=== PATIENT | female | born 1955 | race Two or more races ===

== ENCOUNTER 2019-05-27 00:57 | Emergency (ER) | payer MEDICAID, OTHER ==
[~2019-05-27] VITALS: Ht 162.6 cm; Wt 113.4 kg
[2019-05-27 01:19] LABS: Basophils # (auto) 0.1 10 ^3/uL (0-0.2); Basophils % (auto) 1.2 % (0.0-2.0); Eosinophils # (auto) 0.4 10 ^3/uL (0-0.8); Eosinophils % (auto) 4.1 % (0.0-7.0); Hematocrit 42.3 % (36.0-46.0); Hemoglobin 14.5 g/dL (12.2-16.2); Lymphocytes # (auto) 3.2 10 ^3/uL (0.4-5.4); Lymphocytes % (auto) 34.1 % (10.0-50.0); Mean Corpuscular Hemoglobin 33.1 pg (28.0-32.0); Mean Corpuscular Hgb Conc. 34.2 g/dL (32.0-36.0); Mean Corpuscular Volume 96.9 fL (80.0-100.0); Monocytes # (auto) 0.6 10 ^3/uL (0-1.3); Monocytes % (auto) 6.8 % (0.0-12.0); Neutrophils % (auto) 53.8 % (37.0-80.0); Nucleated Red Blood Cells % 0.1 %; Platelet Count (auto) 287 10^3/uL (140-450); Red Blood Cells 4.37 10^6/uL (4.0-5.20); Red Cell Distribution Width 13.5 % (11.8-14.3); White Blood Cell 9.3 10^3/uL (4.4-10.8)
[2019-05-27] MEDS ORDERED: IPRATROPIUM BROM 0.5 MG/2.5ML INH SOL NEB ONE (01:30)
[2019-05-27] MEDS ORDERED: ALBUTEROL SULF 2.5 MG/0.5ML(0.5%) NEB SOLN NEB ONE (01:30)
[2019-05-27 01:40] LABS: Alanine Aminotransferase 40 U/L (13-56); Anion Gap 12 (5-15); Aspartate Aminotransferase 23 U/L (15-37); BUN/Creatinine Ratio 12.9; Blood Urea Nitrogen 12 mg/dL (7-18); Calcium 8.2 mg/dL (8.5-10.1); Carbon Dioxide 18 mmol/L (21-32); Chloride 108 mmol/L (98-107); GFR African American 79 mL/min; GFR Non-African American 65 mL/min; Glucose 154 mg/dL (74-106); Potassium 3.1 mmol/L (3.5-5.1); Salicylate < 1.7 mg/dL (2.8-20.0); Sodium 138 mmol/L (136-145)
[2019-05-27 01:42] LABS: Acetaminophen < 2.0 ug/mL (10-30)
[2019-05-27 01:44] LABS: Alkaline Phosphatase 168 U/L (45-117); Bilirubin, Total 0.4 mg/dL (0.2-1.0); Total Protein 7.3 g/dL (6.4-8.2)
[2019-05-27 02:09] LABS: Magnesium 2.2 mg/dL (1.6-2.6)
[2019-05-27 02:30] VITALS: BP 104/58
[2019-05-27] MEDS ORDERED: THIAMINE 100mg/ml INJ (200mg/2ml VIAL) IV ONE (03:45)
[2019-05-27] MEDS ORDERED: THIAMINE HCL 100 MG TAB ONE (03:48)
[2019-05-27] MEDS ORDERED: THIAMINE HCL 100 MG TAB PO ONE (04:00)
== END 2019-05-27 04:09 | disposition home or self-care (01) ==
LOC: EDBD 00:57 → ER 01:03
DX: G92 Toxic encephalopathy (principal); F10.129 Alcohol abuse with intoxication, unspecified; R41.82 Altered mental status, unspecified; J45.909 Unspecified asthma, uncomplicated; E78.5 Hyperlipidemia, unspecified; I10 Essential (primary) hypertension; Y90.9 Presence of alcohol in blood, level not specified
CPT/HCPCS: 36415; 71045; 80053; 80320; 80329; 82150; 83690; 83735; 83880; 84484; 85025; 94640; 99285; J7644

== ENCOUNTER 2022-01-25 07:16 | Inpatient (IN) | payer MEDICAID ==
[~2022-01-25] VITALS: Ht 304.8 cm; Wt 104.6 kg
[2022-01-25 08:10] LABS: Basophils # (auto) 0.1 10 ^3/uL (0-0.2); Basophils % (auto) 0.9 % (0.0-2.0); Eosinophils # (auto) 0.3 10 ^3/uL (0-0.8); Hematocrit 39.8 % (36.0-46.0); Hemoglobin 13.6 g/dL (12.2-16.2); Lymphocytes # (auto) 1.5 10 ^3/uL (0.4-5.4); Mean Corpuscular Hemoglobin 32.3 pg (28.0-32.0); Mean Corpuscular Hgb Conc. 34.2 g/dL (32.0-36.0); Mean Corpuscular Volume 94.6 fL (80.0-100.0); Monocytes # (auto) 0.7 10 ^3/uL (0-1.3); Neutrophils % (auto) 60.1 % (37.0-80.0); Red Blood Cells 4.21 10^6/uL (4.0-5.20); Red Cell Distribution Width 13.5 % (11.8-14.3); White Blood Cell 6.6 10^3/uL (4.4-10.8)
[2022-01-25 08:29] LABS: Albumin 3.2 g/dL (3.4-5.0)
[2022-01-25 08:32] LABS: Bilirubin, Total 1.5 mg/dL (0.2-1.0); Total Protein 7.5 g/dL (6.4-8.2)
[2022-01-25 09:30] LABS: Urine Bacteria NONE SEEN /hpf (None Seen); Urine Blood 2+ /uL (Negative); Urine Specific Gravity 1.009 (1.001-1.035); Urine WBC 1 /hpf (0 - 5)
[2022-01-25] MEDS ORDERED: cefTRIAXone 1GM/50ML D5W 50 ML IV ONE (12:15)
[2022-01-25] MEDS ORDERED: CLINDAMYCIN 600MG IV 50 ML IV ONE (12:15)
[2022-01-25 13:30] LABS: Basophils # (auto) 0 10 ^3/uL (0-0.2); Basophils % (auto) 0.7 % (0.0-2.0); Eosinophils # (auto) 0.3 10 ^3/uL (0-0.8); Eosinophils % (auto) 4.4 % (0.0-7.0); Hematocrit 41.3 % (36.0-46.0); Lymphocytes # (auto) 1.3 10 ^3/uL (0.4-5.4); Lymphocytes % (auto) 19.7 % (10.0-50.0); Mean Corpuscular Hemoglobin 32.1 pg (28.0-32.0); Mean Corpuscular Hgb Conc. 33.9 g/dL (32.0-36.0); Mean Corpuscular Volume 94.7 fL (80.0-100.0); Monocytes # (auto) 0.5 10 ^3/uL (0-1.3); Monocytes % (auto) 7.9 % (0.0-12.0); Neutrophils # (auto) 4.3 10 ^3/uL (1.6-8.6); Neutrophils % (auto) 67.3 % (37.0-80.0); Nucleated Red Blood Cells % 0.1 %; Red Blood Cells 4.36 10^6/uL (4.0-5.20); Red Cell Distribution Width 13.3 % (11.8-14.3); White Blood Cell 6.4 10^3/uL (4.4-10.8)
[2022-01-25 14:10] LABS: Albumin 3.5 g/dL (3.4-5.0); BUN/Creatinine Ratio 17.9; Calcium 9.1 mg/dL (8.5-10.1); Potassium 3.7 mmol/L (3.5-5.1)
[2022-01-25 14:13] LABS: Bilirubin, Total 1.9 mg/dL (0.2-1.0); Total Protein 8.7 g/dL (6.4-8.2)
[2022-01-25] MEDS ORDERED: DOCUSATE SOD 100 MG CAP PO PRN (17:15)
[2022-01-25] MEDS ORDERED: ONDANSETRON HCL 4 MG/2 ML VIAL IV PRN (17:15)
[2022-01-25] MEDS ORDERED: SODIUM CHLORIDE 0.9% 1,000 ML IV ONE (17:15)
[2022-01-25] MEDS: CLINDAMYCIN 600MG IV 50 ML IV SCH (23:10)
[2022-01-26 05:00] VITALS: BP 126/64
[2022-01-26 07:31] LABS: Basophils # (auto) 0 10 ^3/uL (0-0.2); Basophils % (auto) 0.5 % (0.0-2.0); Eosinophils # (auto) 0.1 10 ^3/uL (0-0.8); Eosinophils % (auto) 1.9 % (0.0-7.0); Hematocrit 38.3 % (36.0-46.0); Hemoglobin 13.3 g/dL (12.2-16.2); Lymphocytes # (auto) 0.5 10 ^3/uL (0.4-5.4); Lymphocytes % (auto) 9.6 % (10.0-50.0); Mean Corpuscular Hemoglobin 32.8 pg (28.0-32.0); Mean Corpuscular Hgb Conc. 34.7 g/dL (32.0-36.0); Mean Corpuscular Volume 94.6 fL (80.0-100.0); Monocytes # (auto) 0.3 10 ^3/uL (0-1.3); Monocytes % (auto) 5.6 % (0.0-12.0); Neutrophils # (auto) 3.9 10 ^3/uL (1.6-8.6); Neutrophils % (auto) 82.4 % (37.0-80.0); Nucleated Red Blood Cells % 0.1 %; Red Blood Cells 4.05 10^6/uL (4.0-5.20); White Blood Cell 4.8 10^3/uL (4.4-10.8)
[2022-01-26 07:50] LABS: Albumin 2.7 g/dL (3.4-5.0); BUN/Creatinine Ratio 16.3; Calcium 8.4 mg/dL (8.5-10.1)
[2022-01-26 07:52] LABS: Bilirubin, Total 2.2 mg/dL (0.2-1.0); Total Protein 7.4 g/dL (6.4-8.2)
[2022-01-26 09:00] VITALS: BP_SYST 134; BP_SYST 139; BP_DIAS 68; BP_DIAS 78
[2022-01-26] MEDS: ENOXAPARIN SOD 40 MG/0.4 ML SYRINGE SC SCH (09:49)
[2022-01-26] MEDS: MORPHINE SULFATE INJ 2 MG/ml SYRG IV PRN ×2 (09:57→23:55)
[2022-01-26 13:00] VITALS: BP 130/72
[2022-01-26] MEDS: CLINDAMYCIN 600MG IV 50 ML IV SCH (14:55)
[2022-01-26 17:00] VITALS: BP 137/73
[2022-01-26] MEDS: BUMETANIDE 2.5mg/10ml (0.25 mg/ml) INJ IV SCH (18:09)
[2022-01-26] MEDS: POTASSIUM CHL 10 Meq TABLET PO SCH (21:17)
[2022-01-26 22:00] VITALS: BP 142/84
[2022-01-27 05:00] VITALS: BP 120/72
[2022-01-27] MEDS: BUMETANIDE 2.5mg/10ml (0.25 mg/ml) INJ IV SCH ×2 (06:18→17:40)
[2022-01-27 06:49] LABS: BUN/Creatinine Ratio 13.4; Calcium 8.3 mg/dL (8.5-10.1); Magnesium 1.8 mg/dL (1.6-2.6); Potassium 3.6 mmol/L (3.5-5.1)
[2022-01-27 09:00] VITALS: BP 107/69
[2022-01-27] MEDS: ENOXAPARIN SOD 40 MG/0.4 ML SYRINGE SC SCH (09:36)
[2022-01-27] MEDS: POTASSIUM CHL 10 Meq TABLET PO SCH ×2 (09:36→22:02)
[2022-01-27] MEDS: MAGNESIUM SULFATE 1GM/100ML 100 ML IV SCH ×2 (09:41→10:45)
[2022-01-27 13:00] VITALS: BP 106/68
[2022-01-27] MEDS: CLINDAMYCIN 600MG IV 50 ML IV SCH ×2 (14:13→22:02)
[2022-01-27] MEDS: MORPHINE SULFATE INJ 2 MG/ml SYRG IV PRN (14:21)
[2022-01-27 17:00] VITALS: BP 121/71
[2022-01-27 22:00] VITALS: BP 97/61
[2022-01-28 05:00] VITALS: BP 138/76
[2022-01-28] MEDS: CLINDAMYCIN 600MG IV 50 ML IV SCH ×2 (05:43→14:46)
[2022-01-28] MEDS: BUMETANIDE 2.5mg/10ml (0.25 mg/ml) INJ IV SCH (05:47)
[2022-01-28 06:15] LABS: BUN/Creatinine Ratio 12.5; Calcium 8.3 mg/dL (8.5-10.1); Potassium 3.4 mmol/L (3.5-5.1)
[2022-01-28 09:00] VITALS: BP 100/53
[2022-01-28] MEDS: ENOXAPARIN SOD 40 MG/0.4 ML SYRINGE SC SCH (10:02)
[2022-01-28] MEDS: POTASSIUM CHL 10 Meq TABLET PO SCH (10:02)
[2022-01-28 13:00] VITALS: BP 115/62
[2022-01-28] MEDS ORDERED: SULF400T11 PO (16:04)
[2022-01-28] MEDS ORDERED: SPIR25TA PO (16:04)
[2022-01-28 17:26] VITALS: BP 114/37
== END 2022-01-28 17:45 | disposition home or self-care (01) | DRG 383 ==
LOC: ER 07:16 → OVERFLOW 17:12 → EAST 01-26 03:50
PROVIDERS: ADMIT Nurse Practitioner Family; ATTEND Hospitalist
DX: L03.115 Cellulitis of right lower limb (principal); I10 Essential (primary) hypertension; J45.909 Unspecified asthma, uncomplicated; Z20.822 Contact with and (suspected) exposure to COVID-19
CPT/HCPCS: 36415; 71045; 80048; 80053; 81001; 83605; 83735; 84484; 85025; 87040; 87426; 93306; 93971; 96361; 96365; 96367; G0378; J0696; J3490

== ENCOUNTER 2023-08-03 04:37 | Inpatient (IN) | payer MEDICARE, MEDICAID ==
[~2023-08-03] VITALS: Ht 152.4 cm; Wt 97.0 kg
[2023-08-03] VITALS (7 sets, daily range): BP systolic 105–107; BP diastolic 55–75; PULSE 81–98; RESP 14–18; TEMP 97.8–98; O2SAT 92–98
[~2023-08-03 04:37] MED LIST: SPIR25TA PO; SULF400T11 PO
[2023-08-03] MEDS: GLUCAGON EMERG KIT 1mg/1ml IM ONE (04:51)
[2023-08-03] MEDS: NITROGLYCERIN 0.4 MG SL TAB SL ONE (04:52)
[2023-08-03 09:09] LABS: Basophils # (auto) 0.1 10 ^3/uL (0-0.2); Basophils % (auto) 0.4 % (0.0-2.0); Eosinophils # (auto) 0.2 10 ^3/uL (0-0.8); Eosinophils % (auto) 1.5 % (0.0-7.0); Hematocrit 36.2 % (36.0-46.0); Hemoglobin 12.4 g/dL (12.2-16.2); Lymphocytes # (auto) 1.5 10 ^3/uL (0.4-5.4); Lymphocytes % (auto) 11.4 % (10.0-50.0); Mean Corpuscular Hemoglobin 31.7 pg (28.0-32.0); Mean Corpuscular Hgb Conc. 34.3 g/dL (32.0-36.0); Mean Corpuscular Volume 92.4 fL (80.0-100.0); Monocytes # (auto) 0.7 10 ^3/uL (0-1.3); Monocytes % (auto) 5.3 % (0.0-12.0); Neutrophils # (auto) 10.9 10 ^3/uL (1.6-8.6); Neutrophils % (auto) 81.4 % (37.0-80.0); Red Blood Cells 3.91 10^6/uL (4.0-5.20); Red Cell Distribution Width 14.6 % (11.8-14.3); White Blood Cell 13.4 10^3/uL (4.4-10.8)
[2023-08-03] MEDS ORDERED: hydrALAZINE HCL 20 MG/ML VL IV PRN (09:15)
[2023-08-03] MEDS ORDERED: ASPI-325 PO (09:18)
[2023-08-03 09:28] LABS: Alanine Aminotransferase 20 U/L (7-40); Albumin 3.8 g/dL (3.2-4.8); Alkaline Phosphatase 119 U/L (46-116); Anion Gap 8 (5-15); Aspartate Aminotransferase 15 U/L (13-40); BUN/Creatinine Ratio 16.7 (10.0-20.0); Bilirubin, Total 1.4 mg/dL (0.2-1.0); Blood Urea Nitrogen 12 mg/dL (9-23); Calcium 9.2 mg/dL (8.7-10.4); Carbon Dioxide 24 mmol/L (20-30); Chloride 107 mmol/L (98-107); Glucose 101 mg/dL (74-106); Potassium 3.6 mmol/L (3.5-5.1); Sodium 139 mmol/L (136-145); Total Protein 6.8 g/dL (5.7-8.2)
[2023-08-03] MEDS ORDERED: ALBUTEROL SULF 2.5 MG/0.5ML(0.5%) NEB SOLN NEB PRN (09:30)
[2023-08-03 09:38] LABS: INR 0.97 (0.9-1.15); Partial Thromboplastin Time 24.3 SEC (24.5-34.5); Prothrombin Time 10.3 sec (9.3-11.8)
[2023-08-03] MEDS ORDERED: ONDANSETRON HCL 4 MG/2 ML VIAL IV PRN (10:15)
[2023-08-03] MEDS: LORazepam 2MG/ML-1ML VIAL IV ONE (10:30)
[2023-08-03] MEDS: SODIUM CHLORIDE 0.9% 1,000 ML IV SCH (10:35)
[2023-08-03] MEDS: SPIRONOLACTONE 25 MG TAB PO SCH (12:30)
[2023-08-03] MEDS: PANTOPRAZOLE 40 MG/10 ML VIAL INJ IV SCH (12:30)
[2023-08-03] MEDS: cefTRIAXone 1GM/50ML D5W 50 ML IV SCH (12:30)
[2023-08-03] MEDS ORDERED: SODIUM CHLORIDE LOCK 10 ML ONE (12:33)
[2023-08-03] MEDS ORDERED: diphenhdrAMINE HCL 50 MG/1 ML VL ONE (12:33)
[2023-08-03] MEDS: MIDAZOLAM HCL 5 MG/ML-1ML VIAL ONE (12:52)
[2023-08-03] MEDS: fentaNYL CITRATE 100 MCG/2 ML VL ONE (12:52)
[2023-08-04] VITALS (7 sets, daily range): BP systolic 114–145; BP diastolic 64–78; PULSE 72–98; RESP 16–20; TEMP 97.6–98.6; O2SAT 93–100
[2023-08-04] MEDS: ENOXAPARIN SOD 40 MG/0.4 ML SYRINGE SC SCH (09:48)
[2023-08-04] MEDS ORDERED: PANT40TA2 PO (12:36)
== END 2023-08-04 16:00 | disposition home or self-care (01) | DRG 254 ==
LOC: ER 04:37 → OVERFLOW 10:07 → ER 10:07 → WEST WING 10:54
PROVIDERS: ADMIT Registered Nurse; ATTEND Internal Medicine
PROC: 0DC58ZZ Extirpation of Matter from Esophagus, Via Natural or Artificial Opening Endoscopic (ICD-10-PCS; principal; 2023-08-03 12:46)
DX: T18.128A Food in esophagus causing other injury, initial encounter (principal); K22.10 Ulcer of esophagus without bleeding; E78.5 Hyperlipidemia, unspecified; Z68.41 Body mass index [BMI] 40.0-44.9, adult; J45.909 Unspecified asthma, uncomplicated; I10 Essential (primary) hypertension; K44.9 Diaphragmatic hernia without obstruction or gangrene; E66.01 Morbid (severe) obesity due to excess calories; Z83.3 Family history of diabetes mellitus; L03.90 Cellulitis, unspecified
CPT/HCPCS: 36415; 71045; 80053; 85025; 85610; 85730; 87040; 96372; C9113; G0378; J2250